=== PATIENT | female | born 1995 | race Caucasian/White ===

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

== ENCOUNTER 2017-09-17 00:43 | Inpatient (IN) | END 2017-09-21 13:55 | disposition home or self-care (01) | DRG 775 ==

== ENCOUNTER 2018-09-03 16:08 | Emergency (ER) | payer OTHER ==
[~2018-09-03] VITALS: Wt 43.2 kg
[~2018-09-03 16:08] MED LIST changes: +FERR325T5 PO; -NITR-58 PO; -PHEN-538 PO; +PREN-93 PO
[2018-09-03] MEDS ORDERED: PHENAZOPYRIDINE 100 MG TAB PO ONE (18:00)
[2018-09-03] MEDS ORDERED: CEPH-443 PO (18:02)
--- NOTE | 2018-09-03 18:12 | ERD ---
ER Documentation Chief Complaint Chief Complaint LOWER LEFT FLANK PAIN X 2 DAYS HPI This is a 23-year-old female with a nonsignificant past medical history presents ED with complaints of left flank pain and dysuria times 3 days. Patient admits to hematuria, increased frequency of urination. Denies vaginal discharge, vaginal pain, nausea, vomiting, diarrhea, constipation and abdominal pain. No known drug allergies. Immunizations up-to-date. ROS All systems reviewed and are negative except as per history of present illness. Medications Home Meds Active Scripts Cephalexin* (Keflex*) 500 Mg Capsule, 500 MG PO QID for 10 Days, CAP Prov:RALPH RODRIGUEZ PA-C 09/03/18 Reported Medications Ferrous Sulfate (Ferrous Sulfate) 325 Mg Tablet.dr, 325 MG PO 09/16/17 Vit No.124/Iron/FA ( Vitamin Tablet) 1 Each Tablet, 1 EACH PO, TAB 09/16/17 Allergies Allergies: Coded Allergies: No Known Allergy (Unverified , 11/18/16) PMhx/Soc History of Surgery: Yes (LEFT BREAST CYST REMOVED) Anesthesia Reaction: No Hx Neurological Disorder: No Hx Respiratory Disorders: No Hx Cardiac Disorders: No Hx Psychiatric Problems: No Hx Miscellaneous Medical Probl: No Hx Alcohol Use: Yes (OCCASSIONAL) Hx Substance Use: No Hx Tobacco Use: No Physical Exam Vitals Vital Signs Date Temp Pulse Resp B/P (MAP) Pulse Ox O2 O2 Flow FiO2 Time Delivery Rate 09/03/18 98.1 78 18 115/74 99 16:18 (88) Physical Exam Const: No acute distress Head: Atraumatic Eyes: Normal Conjunctiva ENT: Normal External Ears, Nose and Mouth. Neck: Full range of motion. No meningismus. Resp: Clear to auscultation bilaterally Cardio: Regular rate and rhythm, no murmurs Abd: , Nondistended, no peritoneal signs, no rigidity, no surgical abdomen, bowel sounds present all 4 quadrants, nontender light deep palpation all 4 quadrants, nontender McBurney's point, Atwood sign negative, no rebound tenderness Skin: No petechiae or rashes Back: left CVA tenderness present Ext: No cyanosis, or edema Neur: Awake and alert Psych: Normal Mood and Affect Results 24 hrs Laboratory Tests Test 09/03/18 17:40 09/03/18 17:44 Urine Color YELLOW Urine Clarity SLIGHTLY CLOUDY Urine pH 6.0 Urine Specific [place] 1.020 Urine Ketones NEGATIVE mg/dL Urine Nitrite NEGATIVE mg/dL Urine Bilirubin NEGATIVE mg/dL Urine Urobilinogen NEGATIVE mg/dL Urine Leukocyte Esterase 1+ Nelda/ul Urine Microscopic RBC 3 /HPF Urine Microscopic WBC 43 /HPF Urine Squamous Epithelial Cells MODERATE /HPF Urine Bacteria FEW /HPF Urine Mucus MODERATE /HPF Urine Hemoglobin NEGATIVE mg/dL Urine Glucose NEGATIVE mg/dL Urine Total Protein NEGATIVE mg/dl POC Beta HCG, Qualitative NEGATIVE Current Medications Medications Dose Sig/Bayron Start Time Status Last (Trade) Ordered Route PRN Stop Time Admin Dose Reason Admin 200 mg ONCE ONCE 09/03/18 DC 09/03/18 Phenazopyridi PO 18:00 17:44 ne HCl 09/03/18 (Pyridium) 18:01 Procedures/MDM LAB INTERPRETATION: negative Urinalysis remarkable for WBCs, leukocyte esterase ER COURSE: The patient was given pyridium The medication was well tolerated and the patient reports improvement in symptoms. The patient was stable throughout ED course. I kept the patient and/or family informed of laboratory and diagnostic imaging results throughout the emergency room course. The patient was promptly evaluated and a treatment plan was devised based on H&P and other data. This plan was discussed with the patient who agreed and had no further questions or concerns prior to discharge. MEDICAL DECISION MAKING: This is a 23-year-old female presents ED with complaints of left flank pain and dysuria times 2 days. Given patient's urinalysis findings and left CVA tenderness will treat patient for pyelonephritis. At this time there is no evidence of sepsis, septic stone, obstructive pyelonephritis, appendicitis, cholecystitis, small bowel obstruction, perforated viscus, among others. No evidence of genitourinary or gastrointestinal emergency. Patient's vitals are stable she can be managed close outpatient follow-up. Advised patient follow-up with her primary care in the next 48 hours. Return to ED with any worsening symptoms DISPOSITION PLAN: We discussed follow up with the patient's primary care doctor within 24 to 48 hours. Patient counseled regarding my diagnostic impression and care plan. Prior to discharge all questions answered. Pt agrees with treatment plan and understands strict return precautions. Precautionary instructions provided including instructions to return to the ER if not improving or for any worsening or changing symptoms or concerns. SPECIALIST FOLLOW UP RECOMMENDED: None Patient has been advised to follow up with primary care in 1-2 days. Disclaimer: Inadvertent spelling and grammatical errors are likely due to EHR/dictation software use and do not reflect on the overall quality of patient care. Also, please note that the electronic time recorded on this note does not necessarily reflect the actual time of the patient encounter. Departure Diagnosis: Primary Impression: Pyelonephritis Condition: Stable Patient Instructions: Pyelonephritis, Female (Adult) Referrals: COMMUNITY CLINICS YOU HAVE RECEIVED A MEDICAL SCREENING EXAM AND THE RESULTS INDICATE THAT YOU DO NOT HAVE A CONDITION THAT REQUIRES URGENT TREATMENT IN THE EMERGENCY DEPARTMENT. FURTHER EVALUATION AND TREATMENT OF YOUR CONDITION CAN WAIT UNTIL YOU ARE SEEN IN YOUR DOCTORS OFFICE WITHIN THE NEXT 1-2 DAYS. IT IS YOUR RESPONSIBILITY TO MAKE AN APPOINTMENT FOR FOLOW-UP CARE. IF YOU HAVE A PRIMARY DOCTOR --you should call your primary doctor and schedule an appointment IF YOU DO NOT HAVE A PRIMARY DOCTOR YOU CAN CALL OUR PHYSICIAN REFERRAL HOTLINE AT IF YOU CAN NOT AFFORD TO SEE A PHYSICIAN YOU CAN CHOSE FROM THE FOLLOWING [facility] [address] [facility]. [facility] [address] [facility] [facility] [facility] [address] [facility] [address] [facility]. [facility] [address] [facility]. [facility]. [address] Additional Instructions: Patient advised to return to the ED immediately for new or worsening symptoms. Patient advised to follow up with primary care provider in the next 24-48 hours. Patient verbalized understanding and agrees with treatment plan and course of action. If patient has no primary care they may follow up with one of the [facility] clinics listed on the following page or one of the options listed below [facility] [address] [place] [address] or [facility] [address] [place] [address] or [facility] [address] [place] [address] RALPH RODRIGUEZ PA-C Sep 03, 2018 18:12
== END 2018-09-03 18:13 | disposition home or self-care (01) ==
LOC: FTE 16:08
DX: N12 Tubulo-interstitial nephritis, not specified as acute or chronic (principal)
CPT/HCPCS: 81001; 81025; Z7610; 99283

== ENCOUNTER 2018-10-21 18:40 | Emergency (ER) | payer SELFPAY ==
[~2018-10-21] VITALS: Ht 157.5 cm; Wt 43.8 kg
[~2018-10-21 18:40] MED LIST changes: +CEPH-443 PO
[2018-10-21 18:47] VITALS: Ht 157.5 cm; Wt 43.8 kg
== END 2018-10-21 20:45 | disposition left against medical advice (07) ==
LOC: E/R 18:40
DX: Z53.21 Procedure and treatment not carried out due to patient leaving prior to being seen by health care provider (principal)

== ENCOUNTER 2019-05-15 01:30 | Emergency (ER) | payer OTHER ==
[~2019-05-15] VITALS: Ht 157.5 cm; Wt 50.4 kg
[~2019-05-15 01:30] MED LIST changes: +BEN25 PO; +FAMO-96 PO; +PRED20TA PO
[2019-05-15 01:32] VITALS: Ht 157.5 cm; Wt 50.4 kg
[2019-05-15] MEDS ORDERED: DEXAMETHASONE 10 MG/ML 1 ML INJ IV ONE (02:00)
[2019-05-15] MEDS ORDERED: DIPHENHYDRAMINE 50 MG INJ IV ONE (02:00)
[2019-05-15] MEDS ORDERED: FAMOTIDINE 20 MG INJ IV ONE (02:00)
[2019-05-15 02:45] VITALS: BP 101/58; PULSE 75; RESP 18
== END 2019-05-15 02:46 | disposition home or self-care (01) ==
LOC: FTE 01:30
DX: R21 Rash and other nonspecific skin eruption (principal)
CPT/HCPCS: 96374; 96375; J1100; J1200; Z7502; Z7610